=== PATIENT | male | born 1950 | race Caucasian/White ===

== ENCOUNTER 2018-11-19 05:20 | Day surgery (SDC) | payer MEDICARE, OTHER, SELFPAY ==
[2018-11-19] VITALS (11 sets, daily range): BP systolic 109–154; BP diastolic 72–90; PULSE 82–89; RESP 16–18; TEMP 36.4–36.9; O2SAT 95–99; BMI 29.2
--- NOTE | 2018-11-19 06:13 | PCM.HP.STD ---
Problem List (1) Personal history of colonic polyps Status: Acute History of Present Illness Date of Admission: 11/19/18 The patient is a 68 year old M who presents today for a surveillance colonoscopy. The patient states he has had a previous history of colon polyps. His most recent colonoscopy was 3 years ago. He has retired and is put on at least 19 pounds of weight. He does have some concerns about his abdominal bloating distention. He has apparently reviewed that with his primary care physician Dr. Lilia Hernandez. The patient denies bright red blood per rectum or melena. He has had no unexpected weight loss. He has been a lifelong cigarette smoker. He denies chest pain. He denies previous history of myocardial infarction or stroke. He denies history of DVT. He otherwise states that his level of health is stable. He presents via our open access program. Past Medical History Allergies No Known Allergies Allergy (Verified 11/15/18 09:43) Home Medications: Ambulatory Orders Medication Instructions Recorded Multivitamin [Multiple Vitamins] 1 each PO DAILY 11/15/18 Quinapril HCl [Accupril] 20 mg PO DAILY 11/15/18 Smoking Status: Current every day smoker Tobacco Use: Cigarettes Review of Systems Constitutional: Denies: Anorexia HEENT: Denies: Difficulty Swallowing Cardiovascular: Denies: Chest Pain Respiratory: Reports: Cough - Chronic smoker's cough Gastrointestinal: Reports: - - Distended. Denies: Abdominal Pain Musculoskeletal: Denies: Leg Pain Neurological: Denies: Balance problems Endocrine: Reports: Change in Body Habitus - Weight gain VTE Information - Inpt Only VTE Present on Admission: No Patient Problems: Active and Suspected Problems Personal history of colonic polyps (Acute) - Physical Exam General: Alert, Oriented x3, Cooperative, No apparent distress HEENT: Atraumatic Oral: Moist Mucosa Neck: Negative Carotid Bruits Lungs: Clear to auscultation Cardiovascular: Regular rate, Regular Rhythm Abdomen: Bowel Sounds Present, Soft, Non Tender, Distended Extremities: No Calf Tenderness Neurological: Cranial nerves II-XII grossly intact Psych/Mental Status: Normal Affect Vital Signs Temp Pulse Resp BP Pulse Ox 97.5 F L 84 16 134/90 H 95 11/19/18 05:45 11/19/18 05:45 11/19/18 05:45 11/19/18 05:45 11/19/18 05:45 Oxygen Delivery Method Room Air Weight: 234 lb 2.095 oz Body Mass Index (BMI) 29.2 Assessment/Plan All Active Problems Personal history of colonic polyps (Acute) 68-year-old gentleman with a personal history of colon polyps. I propose a colonoscopy with possible biopsy or polypectomy as indicated. He is aware of the technique, benefits, risks, alternatives. We will proceed as noted. Mic Quintana M.D., F.A.C.S.
--- NOTE | 2018-11-19 06:30 | COLBX_PTH ---
PATIENT: KELLY CHA LOC: EN U#:[id number] AGE/SX: 68/M ROOM: RE11/19/[address]: Dr. Mic Quintana MD : 1950 BED: DIS: 11/19/2018 SPEC #: [id number] RECD: 11/19/18 09:23 STATUS: BAO JATIN #: [id number] SUZIE: 11/19/18 06:[address]: Mic Quintana DEPT: SURGICAL PATHOLOGY RECD BY: Enoch Trevizo ENTERED: 11/19/18 11:35 SP TYPE: COLON BX OT DR: Dr. Lilia Hernandez MD Tissues: A - Descending colon B - Sigmoid colon biopsy Procedures: Surgery Specimen Level IV HEADER OPERATION: Colonoscopy (MOD) PRE-OP DIAGNOSIS: Screening TISSUE SUBMITTED: A - Descending polyp biopsy, B - Mid sigmoid polyp biopsy MICROSCOPIC DIAGNOSIS A. Descending colon polyp, biopsy: Tubular adenoma. B. Mid sigmoid colon polyp, biopsy: Fragments of hyperplastic polyp. AM:marino 11/20/18 COMMENT Case has been reviewed in consultation with Dr. Saab who concurs with the above diagnosis. LING:LIZZIE MICROSCOPIC DESCRIPTION Slides are reviewed. GROSS DESCRIPTION A - Received in fixative is one container labeled with the patient's name and designated descending polyp biopsy. The specimen consists of one irregular fragment of light delaney soft tissue that measures 0.4 x 0.3 x 0.1 cm. The specimen is totally submitted in one cassette. B - Received in fixative is one container labeled with the patient's name and designated mid sigmoid polyp biopsy. The specimen consists of multiple irregular fragments of light delaney soft tissue that in aggregate measure 1 x 0.5 x 0.1 cm. The specimen is totally submitted in one cassette. / LIZZIE:marino 11/19/18 TC:5 CPT: 14121 x2
--- NOTE | 2018-11-19 06:59 | OP.ENDO_ITS ---
Patient Name: Dane Boss Procedure Date: 11/19/2018 6:01 AM Date of : 1950 Age: 68 Procedure: Colonoscopy Indications: High risk colon cancer surveillance: Personal history of colonic polyps Providers: Mic Quintana MD Medicines: Midazolam 5 mg IV, Meperidine 100 mg IV Patient Profile: Last Colonoscopy: 3 years ago. Complications: No immediate complications. Procedure: Pre-Anesthesia Assessment: - Prior to the procedure, a History and Physical was performed, and patient medications and allergies were reviewed. The patient's tolerance of previous anesthesia was also reviewed. The risks and benefits of the procedure and the sedation options and risks were discussed with the patient. All questions were answered, and informed consent was obtained. Prior Anticoagulants: The patient has taken no previous anticoagulant or antiplatelet agents. ASA Grade Assessment: II - A patient with mild systemic disease. After reviewing the risks and benefits, the patient was deemed in satisfactory condition to undergo the procedure. After I obtained informed consent, the scope was passed under direct vision. Throughout the procedure, the patient's blood pressure, pulse, and oxygen saturations were monitored continuously. The adult colonoscope was introduced through the anus and advanced to the cecum, identified by appendiceal orifice and ileocecal valve. The colonoscopy was performed without difficulty. The patient tolerated the procedure well. The quality of the bowel preparation was good. The ileocecal valve and the appendiceal orifice were photographed. Moderate Sedation: Moderate (conscious) sedation was personally administered by the endoscopist. The following parameters were monitored: oxygen saturation, heart rate, blood pressure, and response to care. Total physician intraservice time was 15 minutes. Scope In: 6:36:18 AM Scope Withdrawal Time 0 hours 11 minutes 14 seconds Scope Out: 6:53:57 AM Total Procedure Duration Time 0 hours 17 minutes 39 seconds Findings: Hemorrhoids were found on perianal exam. A 4 mm polyp was found in the distal descending colon. The polyp was sessile. The polyp was removed with a cold biopsy forceps. Resection and retrieval were complete. A 5 mm polyp was found in the mid sigmoid colon. The polyp was sessile. The polyp was removed with a cold biopsy forceps. Resection and retrieval were complete. Multiple diverticula were found in the sigmoid colon. Impression: - Hemorrhoids found on perianal exam. - One 4 mm polyp in the distal descending colon, removed with a cold biopsy forceps. Resected and retrieved. - One 5 mm polyp in the mid sigmoid colon, removed with a cold biopsy forceps. Resected and retrieved. - Diverticulosis in the sigmoid colon. Recommendation: - Discharge patient to home. - Resume previous diet. - Continue present medications. - Telephone my office for pathology results in 1 week. - Repeat colonoscopy in 5 years for surveillance. Procedure Code(s): --- Professional --- 19276, Colonoscopy, flexible; with biopsy, single or multiple 56102, 59, Moderate sedation services provided by the same physician or other qualified health veterinarian laboratory animal care performing the diagnostic or therapeutic service that the sedation supports, requiring the presence of an independent trained observer to assist in the monitoring of the patient's level of consciousness and physiological status; initial 15 minutes of intraservice time, patient age 5 years or older Diagnosis Code(s): --- Professional --- Z86.010, Personal history of colonic polyps K64.9, Unspecified hemorrhoids D12.4, Benign neoplasm of descending colon D12.5, Benign neoplasm of sigmoid colon K57.30, Diverticulosis of large intestine without perforation or abscess without bleeding CPT copyright 2017 [employer]. All rights reserved. The codes documented in this report are preliminary and upon manager trust review may be revised to meet current compliance requirements. Mic Quintana MD 11/19/2018 6:58:55 AM This report has been signed electronically. Number of Addenda: 0 Note Initiated On: 11/19/2018 6:01 AM
== END 2018-11-19 07:32 | disposition home or self-care (01) ==
LOC: EN 05:22 → AC 05:25
PROVIDERS: Family Provider Internal Medicine; PCP Internal Medicine; Referring Provider Surgery; Visit Provider Surgery
PROC: 0DJD8ZZ Inspection of Lower Intestinal Tract, Via Natural or Artificial Opening Endoscopic (ICD-10-PCS; CPT 45378; principal; 2018-11-19 06:25)
DX: Z12.11 Encounter for screening for malignant neoplasm of colon (principal); D12.4 Benign neoplasm of descending colon; D12.5 Benign neoplasm of sigmoid colon; K57.30 Diverticulosis of large intestine without perforation or abscess without bleeding; K64.9 Unspecified hemorrhoids; F17.210 Nicotine dependence, cigarettes, uncomplicated; Z86.010 Personal history of colon polyps
CPT/HCPCS: 45380; 88305; 99152; 99153; J7120

== ENCOUNTER → 2022-06-26 | Outpatient (CLI) | payer MEDICARE, OTHER, SELFPAY ==
--- NOTE | 2022-06-26 14:23 | NEURO ---
NCS and/or EMG Patient Report Ordering Doctor: Edward Carrera DATE OF SERVICE: 06/26/22 Indication: Bilateral foot tightness. Lower extremity fatigue, but no associated ngoc muscle weakness or numbness. Findings: Nerve conduction studies were performed in the left and right lower extremities. The right peroneal motor study recording the extensor digitorum brevis showed a reduced amplitude, borderline distal latency and mildly slowed conduction velocity. No conduction block or focal slowing was present across the fibular neck. The right tibial motor study recording the abductor hallucis brevis showed a normal amplitude, normal distal latency and normal conduction velocity. The right sural sensory response was absent. The right superficial peroneal sensory response was intermittently obtainable with a reduced amplitude. The right medial plantar sensory response was absent. The left peroneal motor study recording the extensor digitorum brevis showed a reduced amplitude, borderline distal latency and mildly slowed conduction velocity. No conduction block or focal slowing was present across the fibular neck. The left tibial motor study recording the abductor hallucis brevis showed a normal amplitude, normal distal latency and normal conduction velocity. The left sural sensory response was absent. The left superficial peroneal sensory response was intermittently obtainable with a reduced amplitude. The left medial plantar sensory response was absent. The left radial sensory response recording over the extensor snuff box showed a borderline amplitude, normal latency and normal conduction velocity. Needle EMG of the left lower extremity muscles was performed. No denervation was present in any muscle. Motor unit morphology, activation, and recruitment patterns were normal. Impression: This is a abnormal study. 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 In addition, there was no electrophysiologic evidence of superimposed lumbar radiculopathy in the left lower extremity. Omer De Oliveira D.O. Multi Select Codes Neurology Neurology Interp Codes: 37358-35 Musc test done w/n test comp (interp) and 64871-52 Nrv cndj test 11-12 studies (interp)
== END | disposition home or self-care (01) ==
LOC: PSN 12:32
PROVIDERS: PCP Internal Medicine; Referring Provider Podiatrist; Visit Provider Podiatrist
DX: G60.8 Other hereditary and idiopathic neuropathies (principal)
CPT/HCPCS: 95886; 95912